=== PATIENT | male | born 1945 | race Caucasian/White ===

== ENCOUNTER 2019-02-05 12:01 | Day surgery (SDC) | payer MEDICARE ==
[2019-02-05] MEDS ORDERED: LIDOCAINE 2% MDV (20MG/ML) 20ML VIAL IV ONE (12:02)
[2019-02-05] MEDS ORDERED: PROPOFOL 10 MG/ML VIAL IV ONE (12:02)
--- NOTE | 2019-02-06 11:00 | Operative Note ---
OPERATION: COLONOSCOPY to the cecum with cold snare polypectomy x2. INDICATION: Colorectal cancer screening. The patient reports that his last colonoscopy was more than 10 years ago. ANESTHESIA: Intravenous sedation was administered by the department of anesthesiology and included Diprivan titrated to effect. PROCEDURE: Following informed consent from this alert individual including a discussion of the risks and benefits of the procedure and an opportunity for the patient to ask questions, the patient was in the left lateral decubitus position. A digital rectal examination was performed. No abnormalities were noted. Following this, the Olympus [id number] video colonoscope was inserted into the rectum without resistance. The rectal mucosa had a normal appearance with normal folds and distensibility. The colonoscope was advanced up through the bowel to the level of the cecum. Throughout the bowel the mucosa appeared normal, the folds were normal, and the bowel was fairly well distensible. The cecum was defined by noting the appendiceal orifice and ileocecal valve. From the base of the cecum, the colonoscope was then withdrawn. Overall, the colon preparation was good. No abnormalities were noted except for a few scattered diverticula in the sigmoid region, also two 4-5 mm polyps were noted in the sigmoid colon each removed with application of cold snare polypectomy. The polyps were retrieved. Retroflexion in the rectum was endoscopically normal. The endoscope was straightened and removed. The patient tolerated the procedure well and was returned to the recovery area in stable condition. IMPRESSION: 1. Two 4-5 mm sigmoid polyps removed with cold snare polypectomy. 2. Mild diverticulosis. RECOMMENDATIONS: The patient was advised that he should receive a copy of his pathology report at home in the next 1-2 weeks. If not, he was asked to call my office to review the results of testing today. Further recommendations will be forthcoming pending those results. followup will also be with Dr. Sanchez. As always, thank you for allowing me to participate in the care of your patient. LORRAINE
== END 2019-02-05 14:48 | disposition home or self-care (01) ==
LOC: HOP 12:01
PROVIDERS: ATTEND Internal Medicine Gastroenterology
DX: Z12.11 Encounter for screening for malignant neoplasm of colon (principal); D12.5 Benign neoplasm of sigmoid colon; K63.5 Polyp of colon; K57.30 Diverticulosis of large intestine without perforation or abscess without bleeding; E11.9 Type 2 diabetes mellitus without complications; E78.00 Pure hypercholesterolemia, unspecified; J44.9 Chronic obstructive pulmonary disease, unspecified